=== PATIENT | female | born 1990 | race American Indian/Alaskan Native ===

== ENCOUNTER 2019-06-29 09:08 | Inpatient (IN) | payer OTHER, MEDICAID ==
[2019-06-29] MEDS ORDERED: TERBUTALINE 1 MG/1 ML INJ IVP PRN (10:25)
[2019-06-29] MEDS ORDERED: TERBUTALINE 1 MG/1 ML INJ SUB-Q PRN (10:25)
[2019-06-29] MEDS ORDERED: ONDANSETRON 4 MG/2 ML INJ IV PRN (10:25)
[2019-06-29] MEDS ORDERED: ePHEDrine SULFATE 50 MG/1 ML INJ IV PRN (10:25)
[2019-06-29] MEDS ORDERED: MINERAL OIL 30 ML ORAL LIQD PO PRN (10:25)
[2019-06-29] MEDS ORDERED: NALOXONE 0.4 MG/1 ML INJ IV PRN (10:25)
[2019-06-29] MEDS ORDERED: BUTORPHANOL 2 MG/1 ML INJ IV PRN (10:25)
[2019-06-29] MEDS ORDERED: LACTATED RINGERS 1,000 ML ONE (10:28)
[2019-06-29] MEDS ORDERED: OXYTOCIN DRIP 30,000 MILLIUNITS/500 ML BAG IV ONE (10:29)
--- NOTE | 2019-06-29 10:32 | History and Physical Report ---
History of Present Illness Date of examination: 06/29/19 Date of admission: 06/29/19 09:08 Chief complaint: Presents for a scheduled Postdates Induction of Labor History of present illness: Late Transfer into care at 25 Weeks; course complicated by Trichomonas (treated with Negative PRAVEEN); Mild Anemia (taking FeSO4); and + HSV II (taking suppressive therapy). Past History Past Medical History: no pertinent history Past Surgical History: no surgical history DRAWER IN History: herpes Family/Genetic History: diabetes (parents) Social history: no significant social history, single - Obstetrical History Expected Date of Delivery: 06/23/19 Actual Gestation: 40 Week(s) 6 Day(s) : 4 Para: 2 Hx # Term Pregnancies: 2 Induced : 1 Number of Living Children: 2 #1 Gender: Male year: Method of Delivery: Vaginal Gestational age at delivery: 41 Complications: none #2 Infant Gender: Female year: Method of Delivery: Vaginal Gestational age at delivery: 41 Complications: none Medications and Allergies Allergies Allergy/AdvReac Type Severity Reaction Status Date / Time No Known Allergies Allergy Verified 03/01/14 01:59 Home Medications Medication Instructions Recorded Confirmed Last Taken Type Ciprofloxacin HCl [Cipro] 500 mg PO Q12H #14 tab 03/01/14 Unknown Rx Acetaminophen/Codeine [Tylenol 1 tab PO Q6H PRN #20 tab 09/11/14 Unknown Rx /Codeine # 3 tab] DOXYCYCLINE Hyclate [Vibramycin 100 mg PO BID #20 capsule 09/11/14 Unknown Rx CAP] Ibuprofen [Motrin 600 MG tab] 600 mg PO Q8H PRN #50 tablet 09/11/14 Unknown Rx metroNIDAZOLE [Flagyl] 500 mg PO BID #20 tablet 09/11/14 Unknown Rx Active Meds: Active Medications Butorphanol Tartrate (Stadol) 2 mg IV Q2H PRN PRN Reason: Pain , Severe (7-10) Ephedrine Sulfate (Ephedrine Sulfate) 10 mg IV Q2M PRN PRN Reason: Hypotension Oxytocin/Sodium Chloride (Pitocin/Ns 20 Unit/1000ml Drip) 20 units in 1,000 mls @ 125 mls/hr IV DIRECT MERARI Oxytocin/Sodium Chloride (Pitocin/Ns 30 Unit/500ml) 30 units in 500 mls @ 4 mls/hr IV TITR MERARI; Protocol Lactated Ringer's (Lactated Ringers) 1,000 mls @ 125 mls/hr IV DIRECT MERARI Lidocaine (Xylocaine 2%) 20 ml INFILTRATI ONCE ONE Stop: 06/29/19 10:26 Mineral Oil (Mineral Oil) 30 ml PO QHS PRN PRN Reason: Constipation Naloxone HCl (Naloxone) 0.1 mg IV Q2MIN PRN PRN Reason: Res Rate </= 8 or 02 SAT < 92% Ondansetron HCl (Zofran) 4 mg IV Q8H PRN PRN Reason: Nausea And Vomiting Terbutaline Sulfate (Brethine) 0.25 mg SUB-Q ONCE PRN PRN Reason: Hyperstimulation/Hypertonicity Terbutaline Sulfate (Brethine) 0.25 mg IVP ONCE PRN PRN Reason: Hyperstimulation/Hypertonicity Review of Systems All systems: negative - Vital Signs Vital signs: Vital Signs Pulse BP 75 115/59 06/29/19 09:48 06/29/19 09:48 Temp Pulse Resp BP Pulse Ox 75 115/59 06/29/19 09:48 06/29/19 09:48 - Physical Exam Breasts: Positive: normal Cardiovascular: Regular rate Lungs: Positive: Clear to auscultation, Normal air movement Abdomen: Positive: normal appearance, soft, normal bowel sounds Genitourinary (Female): Positive: normal external genitalia, normal perenium Vagina: Positive: normal moisture Uterus: Positive: enlarged Anus/Rectum: Positive: normal perianal skin Extremities: Positive: normal - Obstetrical FHR: category 1 Uterine Contraction Monitor Mode: External Cervical Dilatation: 3 (VTX, Intact) Cervical Effacement Percentage: 60 station: -2 Uterine Contraction Pattern: Irregular Uterine Tone Measurement Phase: Resting Uterine Contraction Intensity: Mild Results All other labs normal. Assessment and Plan A: IUP @ 40 6/7 Weeks Category I Tracing GBS Negative P: Admit to L&D Per Routine Orders Pitocin Induction
[2019-06-29 10:49] LABS: Hematocrit 48.4 % (30.3-42.9); Hemoglobin 16.1 gm/dl (10.1-14.3); Mean Corpuscular HGB Conc 33 % (30-34); Mean Corpuscular Volume 87 fl (79-97); Platelet Count 200 K/mm3 (140-440); Red Blood Count 5.56 M/mm3 (3.65-5.03); Red Cell Distribution Width 15.6 % (13.2-15.2)
[2019-06-29] MEDS ORDERED: OXYTOCIN 20 UNIT/1000ML DRIP 20 UNITS/1,000 ML BAG IV SCH (11:00)
[2019-06-29] MEDS ORDERED: OXYTOCIN DRIP 30 UNITS/500 ML BAG IV SCH (11:00)
[2019-06-29] MEDS ORDERED: LACTATED RINGERS 1,000 ML IV SCH (11:00)
[2019-06-29] MEDS ORDERED: LIDOCAINE (2%) 20 MG/1 ML VIAL 20 ML MDV INFILTRATI ONE (11:25)
--- NOTE | 2019-06-29 14:27 | Procedure Note ---
OB Delivery Note - Delivery Date of Delivery: 06/29/19 (1354) Surgeon: VASILIY POWERS Estimated blood loss: other (150) - Vaginal Delivery presentation: vertex Delivery position: OA Intrapartum events: none Delivery induction: oxytocin Delivery augmentation: rupture of membranes (AROM of a Scant Amount of Clear Fluid @ 1335), pitocin Delivery monitor: external FHT, internal uterine Route of delivery: Delivery placenta: spontaneous Delivery cord: nuchal cord, 3 umbilical vessels Episiotomy: none Delivery laceration: none Anesthesia: none Delivery comments: of a live 6'15 male over a intact perineum under IV pain control with Apgars of 8 and 9 at 1354 on 06/29/2019. Nuchal cord x 1 easily manually reduced on the perineum prior to delivery of the anterior shoulder. Infant directly to maternal abd/chest, skin to skin contact. Spontaneous delivery of placenta complete and intact with Danielle side presenting at 1358. Fundus is firm and midline located 4 below the U; Lochia is scant. Delayed cord clamping and cutting; Cord cut by the Mother's Sister. Cord blood collected placenta discarded. - Infant A at 1 minute: 8 at 5 minutes: 9 Gender: Male (6'15)
[2019-06-29] MEDS ORDERED: WITCH HAZEL/ GLYCERIN PAD TP PRN (15:00)
[2019-06-29] MEDS ORDERED: diphenhydrAMINE 25 MG CAP PO PRN (15:00)
[2019-06-29] MEDS ORDERED: HYDROcodone/ACETAMINOPHEN 5-325 MG TAB PO PRN (15:00)
[2019-06-29] MEDS: IBUPROFEN 600 MG TAB PO SCH ×2 (17:20→23:50)
[2019-06-30 05:55] LABS: Hematocrit 32.1 % (30.3-42.9); Hemoglobin 10.8 gm/dl (10.1-14.3)
[2019-06-30] MEDS: IBUPROFEN 600 MG TAB PO SCH ×3 (06:20→17:58)
--- NOTE | 2019-06-30 09:10 | Progress Note ---
Assessment and Plan - Patient Problems (1) Status post normal vaginal delivery Current Visit: Yes Status: Acute Plan to address problem: Continue routine PP orders Anticipate d/c home tomorrow F/U in office in 6 wks for routine PP visit (2) Anemia Current Visit: Yes Status: Acute Qualifiers: Anemia type: other cause Other causes of anemia: acute posthemorrhagic Qualified Code(s): D62 - Acute posthemorrhagic anemia Plan to address problem: Asymptomatic Increase iron rich foods into diet Subjective - Subjective Date of service: 06/30/19 Principal diagnosis: S/P ; PPD#1 Interval history: See admission H & P; OB delivery summary and PP progress notes Patient reports: appetite normal, voiding normally, pain well controlled, flatus, ambulating normally : doing well, bottle feeding (and ) Objective - Vital Signs Latest vital signs: Vital Signs Temp Pulse Resp BP BP Pulse Ox 06/30/19 02:07 98.3 F 72 18 105/59 98 06/29/19 21:24 98.5 F 85 16 113/58 98 06/29/19 16:15 97.9 F 78 18 124/67 97 06/29/19 15:54 82 121/64 06/29/19 15:39 100 H 131/73 06/29/19 15:25 72 127/65 06/29/19 15:10 86 126/59 06/29/19 15:04 80 131/70 06/29/19 14:55 81 147/64 06/29/19 14:39 73 130/63 06/29/19 14:25 88 139/65 06/29/19 14:10 94 H 108/53 06/29/19 13:54 101 H 169/86 06/29/19 13:24 65 114/59 06/29/19 12:54 70 114/58 06/29/19 12:24 71 133/59 06/29/19 12:18 97.8 F 16 96 06/29/19 11:54 83 127/84 06/29/19 11:23 74 99/54 06/29/19 09:48 75 115/59 Intake and Output 06/29/19 06/30/19 06/30/19 23:59 07:59 15:59 Intake Total 480 120 Output Total 800 2 Balance -320 118 Intake: Oral 240 Intake, Free Water 240 120 Output: Urine 800 2 Void 800 2 Other: Total, Intake Amount 240 Total, Output Amount 800 2 # Voids Void 2 - Exam Breasts: Present: normal Cardiovascular: Present: Regular rate Abdomen: Present: soft Uterus: Present: firm, fundal height below umbilicus (U-1) Extremities: Present: normal Deep Tendon Reflex Grade: Normal +2 - Labs Labs: Abnormal lab results 06/29/19 Range/Units 09:40 RBC 5.56 H (3.65-5.03) M/mm3 Hgb 16.1 H (10.1-14.3) gm/dl Hct 48.4 H (30.3-42.9) % RDW 15.6 H (13.2-15.2) %
--- NOTE | 2019-06-30 09:13 | Discharge Summary ---
Providers - Providers Date of Admission: 06/29/19 09:08 Date of discharge: 07/01/19 (0900) Attending physician: LISA LEES MD Primary care physician: LISA LEES MD Hospitalization Reason for admission: induction of labor (secondary to post-date ) Delivery: Episiotomy: none Laceration: none Other procedures: none complications: none Discharge diagnosis: IUP at term delivered, other (Anemia) baby: male Hospital course: See admission H & P; OB delivery summary and PP progress notes Condition at discharge: Good Disposition: DC-01 TO HOME OR SELFCARE - Discharge Diagnoses (1) Status post normal vaginal delivery Status: Acute (2) Anemia Status: Acute Qualifiers: Anemia type: other cause Other causes of anemia: acute posthemorrhagic Qualified Code(s): D62 - Acute posthemorrhagic anemia Plan - Provider Discharge Summary Activity: routine, no sex for 6 weeks, no heavy lifting 4 weeks, no strenuous exercise Diet: other (Iron rich diet) Instructions: routine Additional instructions: [] Smoking cessation referral if applicable(refer to patient education folder for contact #) [] Refer to [facility] Booklet Call your doctor immediately for: * Fever > 100.5 * Heavy vaginal bleeding ( >1 pad per hour) * Severe persistent headache * Shortness of breath * Reddened, hot, painful area to leg or breast - Follow up plan Follow up: LISA LEES MD [Primary Care Provider] - 6 Weeks
[2019-06-30] MEDS: PRENATAL VIT27-FE FUMARATE-FOLIC ACID VIT TAB PO SCH (12:31)
[2019-07-01] MEDS: IBUPROFEN 600 MG TAB PO SCH ×2 (05:55→11:28)
[2019-07-01] MEDS: PRENATAL VIT27-FE FUMARATE-FOLIC ACID VIT TAB PO SCH (11:28)
[2019-07-01 13:06] VITALS: BP 122/57
== END 2019-07-01 13:55 | disposition home or self-care (01) | DRG 806 ==
LOC: LD 09:08 → OB 16:22
PROVIDERS: ADMIT Obstetrics & Gynecology; ATTEND Obstetrics & Gynecology
PROC: 10E0XZZ Delivery of Products of Conception, External Approach (ICD-10-PCS; principal; 2019-06-29)
PROC: 3E033VJ Introduction of Other Hormone into Peripheral Vein, Percutaneous Approach (ICD-10-PCS; 2019-06-29)
PROC: 10907ZC Drainage of Amniotic Fluid, Therapeutic from Products of Conception, Via Natural or Artificial Opening (ICD-10-PCS; 2019-06-29)
DX: O48.0 Post-term pregnancy (principal); D62 Acute posthemorrhagic anemia; Z37.0 Single live birth; O77.0 Labor and delivery complicated by meconium in amniotic fluid; O99.02 Anemia complicating childbirth; Z83.3 Family history of diabetes mellitus; Z3A.40 40 weeks gestation of pregnancy
CPT/HCPCS: 36415; 85014; 85018; 85027; 86706; 86762; 86850; 86900; 86901; G0378; J0595; J2590; J7120